=== PATIENT | female | born 1985 | race Caucasian/White ===

== ENCOUNTER 2018-02-10 06:11 | Inpatient (IN) ==
--- NOTE | 2018-02-10 06:36 | OB/GYN History & Physical ---
Date of Encounter: 02/10/18 Time of Encounter: 06:33 Assessment and Plan (1) Vicente breech presentation Current visit: Yes Status: Acute Qualifiers: Qualified Code(s): O32.1XX0 - Maternal care for breech presentation, not applicable or unspecified (2) S/P primary low transverse Current visit: Yes Status: Acute History of Present Illness Chief complaint: breech presentation HPI: Ms. Barnes is a 32 year old female who presents today for a scheduled primary section for vicente breech presentation. Patient has a due date of February 16. She is currently 39 weeks. She is doing well. She is having no complaints of any kind today. An ultrasound was performed today which confirmed vicente breech presentation this morning. Surgery was discussed with patient. She and her wish to proceed. She has no drug allergies. Current medications include omeprazole and vitamins. She has no chronic medical conditions. Surgical history is negative. She has no history of abnormal Pap smears, STDs or pelvic infections. She has no history of abnormal breast findings. Socially she denies tobacco, alcohol, illicit drug use. Family history is significant for hypertension diabetes. Obstetric history significant for one term vaginal delivery uncomplicated. Obstetrical History - Pregnancies : 2 Para: 1 Term: 1 Livin Review of System OB All systems PM: reviewed and no additional remarkable complaints except as stated Exam - Constitutional Constitutional: well developed, well nourished, no acute distress, average body habitus - HEENT HEENT: PERRL - Neck Neck exam: full ROM, normal inspection - Lungs Respiratory exam: CTAB - Cardiovascular Cardiovascular exam: RRR - Abdomen Abdomen: Present: bowel sounds normal, gravid, non tender - Extremities Extremities exam: full ROM, normal capillary refill, normal inspection Deep Tendon Reflex Grade: 0 Absent - Vagina Vagina: Present: normal moisture - Cervix Dilation: 0 Effacement: 0 Station: -3 - Uterus Uterus exam: Present: normal size Results All other labs normal.
[2018-02-10] MEDS ORDERED: Ringers Solution, Lactated 1,000 ML ONE ×2 (06:39→07:28)
[2018-02-10] MEDS ORDERED: Metoclopramide 10 MG/2 ML VIAL IVP ONE (06:42)
[2018-02-10] MEDS ORDERED: CeFAZolin Premix DUPLEX 2,000 MG/50 ML BAG IVPB ONE (06:42)
[2018-02-10] MEDS ORDERED: Famotidine 20 MG/2 ML VIAL IVP ONE (06:42)
[2018-02-10] MEDS ORDERED: Naloxone 0.4 MG/ML INJ IVP PRN (06:42)
[2018-02-10] MEDS ORDERED: Ringers Solution, Lactated 1,000 ML IVC ONE (06:42)
[2018-02-10] MEDS ORDERED: Oxytocin 20 units/ LR 1000 mL 20 UNIT/1,000 ML BAG IVC ONE (06:42)
[2018-02-10] MEDS ORDERED: Oxytocin 20 units/ LR 1000 mL 20 UNIT/1,000 ML BAG IVC SCH ×3 (06:45→19:32)
[2018-02-10] MEDS ORDERED: Ringers Solution, Lactated 1,000 ML IVC SCH (06:45)
[2018-02-10 07:09] LABS: Basophils % 0.3 %; Eosinophils # 0.1 K/mcL (0.0-0.6); Eosinophils % 0.7 %; Hematocrit 36.7 % (35.3-44.9); Hemoglobin 12.4 g/dL (11.5-15.4); Immature Granulocytes % 0.5 % (0-4); Lymphocytes # 2.4 K/mcL (0.6-4.6); Lymphocytes % 26.1 %; Mean Corpuscular HGB Conc 33.8 g/dL (31.6-35.5); Mean Corpuscular Hemoglobin 30.9 pg (28.0-33.3); Mean Corpuscular Volume 91.5 fL (83.0-100.0); Mean Platelet Volume 10.2 fL (9.4-12.4); Monocytes % 11.3 %; Neutrophils # 5.6 K/mcL (1.6-8.9); Platelet Count 233 K/mcL (140-400); Red Blood Count 4.01 M/mcL (3.82-4.97); Red Cell Distribution Width 13.5 % (11.5-14.5); Segmented Neutrophils % 61.1 %
[2018-02-10] MEDS ORDERED: *HR* Morphine Sulfate/PF 10 MG/10 ML AMPUL ONE (07:25)
[2018-02-10] MEDS ORDERED: *HR* FentaNYL (PF) 100 MCG/2 ML VIAL ONE (07:26)
[2018-02-10] MEDS ORDERED: *HR* Oxytocin 10 UNIT/ML VIAL IM ONE (07:27)
[2018-02-10] MEDS ORDERED: EPHEDrine 50 MG/ML VIAL ONE (07:28)
[2018-02-10] MEDS ORDERED: *HR* Phenylephrine 10 MG/ML VIAL ONE (07:30)
[2018-02-10 08:08] LABS: Amphetamine Screen,Urine Negative ng/mL (Cutoff=1000); Barbiturate Screen,Urine Negative ng/mL (Cutoff=200); Benzodiazepines Screen,Urine Negative ng/mL (Cutoff=200); Cannabinoid Screen,Urine Negative ng/mL (Cutoff = 50); Cocaine Screen,Urine Negative ng/mL (Cutoff= 300); Opiate Screen,Urine Negative ng/mL (Cutoff=300); Phencyclidine Screen,Urine Negative ng/mL (Cutoff=25)
--- NOTE | 2018-02-10 08:47 | Anesthesia Evaluation PreOp ---
Date of Encounter: 02/10/18 Time of Encounter: 07:04 - Past History Planned Operation: pcs Cardiac History: Denies any Significant Hx Pulmonary History: Denies Any Significant HX SPEECH LANGUAGE PATHOLOGY ASSISTANT History: Denies Any Significant HX Other Medical History: Denies Any Significant HX Anesthesia History: No Prior Anesthetic Complications : Yes Test: Positive Alcohol Use: none Drug use: none Medications and Allergies Omeprazole [PriLOSEC] 20 mg PO DAILY 02/10/18 [History] Vit Calc,Iron,Folic [ Vitamins] 1 each PO 02/10/18 [History] 3 Allergy/AdvReac Type Severity Reaction Status Date / Time fluconazole [From Diflucan] Allergy Rash Verified 02/10/18 07:17 - Meds/Allergy Pre-op Review Medications Reviewed: Yes Allergies Reviewed: Yes Beta Blockers on Current Med List: No Anesthesia Results - Labs 02/10/18 06:45 Anesthesia Exam 113/82 68 98% 16 Height: 1.6 Weight: 68 NPO (# of Hours): mn - HEENT Pupil (Motor): Pupils equal Mallampati: II Teeth: Normal Oral Opening: Greater than 3 - SPEECH LANGUAGE PATHOLOGY ASSISTANT LOC: Oriented SPEECH LANGUAGE PATHOLOGY ASSISTANT Motor: Normal RUE, Normal LUE, Normal RLE, Normal LLE, Normal Face SPEECH LANGUAGE PATHOLOGY ASSISTANT Sensory: Normal: RUE, LUE, RLE, LLE, Face - Cardiac Rhythm: Regular Murmur: None JVD: No Carotid Bruit: No - Pulmonary Breath Sounds: bilateral Clear Respiratory Effort: Symmetrical Anesthesia Assess/Plan ASA Score: 1 Modified Counselor Scale for Level of Consciousness: Cooperative, oriented, and tranquil Anesthetic Plan: Regional Monitoring Plan: Standard Monitors Recovery Plan: PACU
--- NOTE | 2018-02-10 08:50 | Anesthesia Procedures ---
Date of Encounter: 02/10/18 Time of Encounter: 08:25 Procedures: Anesthesia - Epidural/Spinal Patient ID/Chart reviewed: Yes Patient examined: Yes OB Eval: Gestational age: 39 OB Eval: : 2 OB Eval: Hx Para: 1 OB Eval: Contractions: Non-stressed pattern Consent Obtained: No Site Prep: Aseptic Technique, Sterile prep and drape, Povidone-Iodine 1% Local Anesthetic: Lidocaine 1% Amount of Local Anesthetic used: 3 Interspace Used: L4-L5 Loss of Resistance (JACK): No Blood: No CSF: Yes Paresthesia: No Vitals + FHT's: stable throughout see nursing notes spinal Bupivicaine 0.75% 1.6ml fentanyl 10mcg duramorph 0.3mg
[2018-02-10] MEDS ORDERED: *HR* OxyCODONE/APAP 5/325 TABLET PO PRN ×2 (08:55→09:16)
[2018-02-10] MEDS ORDERED: Ondansetron 4 MG/2 ML VIAL IVP PRN ×2 (08:55→19:32)
[2018-02-10] MEDS ORDERED: Simethicone 80 MG TAB.CHEW PO PRN ×2 (08:55→19:32)
[2018-02-10] MEDS ORDERED: Sennosides 8.6 MG TABLET PO PRN ×2 (08:55→19:32)
[2018-02-10] MEDS ORDERED: Ibuprofen 600 MG TABLET PO PRN (08:55)
[2018-02-10] MEDS ORDERED: Metoclopramide 10 MG/2 ML VIAL IVP PRN ×2 (08:55→19:32)
[2018-02-10] MEDS ORDERED: Ketorolac 30 MG/ML VIAL ONE (08:56)
[2018-02-10] MEDS ORDERED: Dexamethasone 4 MG/ML VIAL ONE (08:56)
[2018-02-10] MEDS ORDERED: Prenatal Vit/FA 1 EACH TABLET PO SCH (09:00)
--- NOTE | 2018-02-10 09:00 | OB/GYN Procedure Note ---
Section - Date of procedure: 02/10/18 Preop diagnosis: breech Post-op diagnosis: same Procedure: primary low transverse Surgeon: Al Spear Quantitated Blood Loss: 200 Was there an grants assistant present: Yes Database Design Analyst: Rufina Russell Anesthesiologist: Vasu Moore Breaker Unit Assembler: Krystle Moore Anesthesia Type: Spinal section complications: none Disposition: PACU Specimens: Placenta - Infant (s) Infant A Infant Delivery Date: 02/10/18 Infant Delivery Time: 08:34 Presentation: vicente breech Position: unknown Route of delivery: breech extraction Gender: Female Viability: Viable Pounds: 6 Ounces: 3 Gram Weight: 2.815 kg at 1 minute: 8 at 5 minutes: 8 Specimens collected: cord blood Placenta: spontaneous - Narrative Narrative: Patient was taken to the operating room with IV in place after informed consent was obtained. She was then given spinal anesthesia. Patient was then prepped and draped in the usual sterile fashion. Once adequate analgesia was achieved a Pfannenstiel incision was made and carried sharply through the subtenons fatty tissue until the fascial layers reached. The fascia was then nicked in the midline and incised bilaterally. It was then dissected vertically for adequate exposure. Rectus abdominis musculature was in the midline, and the peritoneum was entered sharply entered. A bladder blade was placed at the inferior margin of the incision. The bladder flap was then developed. The bladder blade was placed over the bladder flap, and a low transverse incision was then made in the lower uterine segment. Fluid was noted be clear there was not much fluid at all. was found to be in vicente breech presentation. Infant was delivered in the usual fashion without incidence. cried immediately upon delivery. Cord was cut to cut the infant was then passed to nursing in attendance. Cord blood was obtained. Placenta was then delivered via uterine massage. It was delivered in its entirety. Uterine lavage was then performed. The uterus was delivered. The incision was then closed with 0 Vicryl suture running locking fashion. There was excellent hemostasis. The uterus was replaced the pelvic cavity. The pelvic cavity was then rinsed thoroughly with sterile water 2. C no bleeding the procedure was terminated. The fascia was then closed the Vicryl suture in a running nonlocking fashion. Suprafascial region was rinsed thoroughly with sterile water 2 all bleeders cauterized. The skin was closed cristino. Patient tolerated procedure well. Estimated blood loss 200 mL.
[2018-02-10] MEDS ORDERED: Ibuprofen 400 MG TABLET PO PRN (09:16)
[2018-02-10] MEDS ORDERED: *HR* Promethazine 25 MG/ML VIAL IVP PRN (09:16)
[2018-02-10] MEDS ORDERED: *HR* Morphine 2 MG/ML SYRINGE IVP PRN (09:16)
[2018-02-10] MEDS ORDERED: *HR* Meperidine 25 MG/ML SYRINGE IVP PRN (09:16)
[2018-02-10] MEDS ORDERED: Ondansetron 4 MG/2 ML VIAL IVP ONE (09:16)
[2018-02-10] MEDS: ceFAZolin 1,000 MG in Water for inj. (sterile) 20 ML 10 ML IVP SCH (20:15)
[2018-02-10] MEDS: Ibuprofen 600 MG TABLET PO PRN (20:15)
[2018-02-11] MEDS: *HR* OxyCODONE/APAP 5/325 TABLET PO PRN ×4 (00:04→19:48)
[2018-02-11] MEDS: ceFAZolin 1,000 MG in Water for inj. (sterile) 20 ML 10 ML IVP SCH ×2 (05:01→11:44)
[2018-02-11 06:21] LABS: Basophils # 0.1 K/mcL (0.0-0.2); Basophils % 0.4 %; Eosinophils % 0.3 %; Hematocrit 35.8 % (35.3-44.9); Immature Granulocytes % 0.3 % (0-4); Lymphocytes # 2.2 K/mcL (0.6-4.6); Lymphocytes % 17.4 %; Mean Corpuscular HGB Conc 33.5 g/dL (31.6-35.5); Mean Corpuscular Hemoglobin 31.1 pg (28.0-33.3); Mean Corpuscular Volume 92.7 fL (83.0-100.0); Monocytes # 1.3 K/mcL (0.0-1.3); Platelet Count 203 K/mcL (140-400); Red Blood Count 3.86 M/mcL (3.82-4.97); Red Cell Distribution Width 13.5 % (11.5-14.5); Segmented Neutrophils % 71.6 %
[2018-02-11] MEDS: Ibuprofen 600 MG TABLET PO PRN ×3 (07:56→23:53)
[2018-02-11] MEDS: Prenatal Vit/FA 1 EACH TABLET PO SCH (07:56)
[2018-02-11] MEDS: Famotidine 20 MG TABLET PO SCH (13:01)
[2018-02-12] MEDS: *HR* OxyCODONE/APAP 5/325 TABLET PO PRN ×2 (02:02→08:15)
[2018-02-12] MEDS: Ibuprofen 600 MG TABLET PO PRN (06:46)
[2018-02-12 07:46] VITALS: BP 108/70
[2018-02-12] MEDS: Famotidine 20 MG TABLET PO SCH (08:15)
[2018-02-12] MEDS: Prenatal Vit/FA 1 EACH TABLET PO SCH (08:15)
--- NOTE | 2018-02-12 09:15 | Discharge Summary ---
Date of Encounter: 02/12/18 Time of Encounter: 09:14 - Discharge Diagnosis (1) S/P primary low transverse Priority: Primary Status: Acute Comments: Stable in PP. Pain well managed on po pain medication, tolerates regular diet, passing flatus, no BM. Bottle feeding, desires discharge. - Discharge Medications Prescriptions: OxyCODONE/APAP 5/325 [Percocet 5/325 MG] 1 each PO Q4HR PRN 5 Days #20 tablet PRN Reason: Moderate pain 4-6 Ibuprofen [Motrin] 600 mg PO Q6HR PRN #60 tablet PRN Reason: Cramping Docusate [Colace] 100 mg PO BID #30 capsule Home Medications: Vit Calc,Iron,Folic [ Vitamins] 1 each PO 02/10/18 [History] Docusate [Colace] 100 mg PO BID #30 capsule 02/12/18 [Rx] Famotidine [Pepcid] 20 mg PO BIDAC tablet 02/12/18 [Rx] Ibuprofen [Motrin] 600 mg PO Q6HR PRN #60 tablet 02/12/18 [Rx] OxyCODONE/APAP 5/325 [Percocet 5/325 MG] 1 each PO Q4HR PRN 5 Days #20 tablet [Rx] Vit/FA 1 each PO DAILY tablet 02/12/18 [Rx] Simethicone [Gas-X] 80 mg PO TID PRN tab.chew 02/12/18 [Rx] Allergies/Adverse Reactions: 3 Allergy/AdvReac Type Severity Reaction Status Date / Time fluconazole [From Diflucan] Allergy Rash Verified 02/10/18 07:17 Data Procedures and tests throughout hospitalization: Laboratory Tests 02/10/18 02/10/18 02/11/18 06:45 06:45 06:11 WBC 9.2 12.5 H RBC 4.01 3.86 Hgb 12.4 12.0 Hct 36.7 35.8 MCV 91.5 92.7 MCH 30.9 31.1 MCHC 33.8 33.5 RDW 13.5 13.5 Plt Count 233 203 MPV 10.2 10.0 Immature Gran % 0.5 0.3 Seg Neutrophils % 61.1 71.6 Lymphocytes % 26.1 17.4 Monocytes % 11.3 10.0 Eosinophils % 0.7 0.3 Basophils % 0.3 0.4 Neutrophils # 5.6 9.0 H Lymphocytes # 2.4 2.2 Monocytes # 1.0 1.3 Eosinophils # 0.1 0.0 Basophils # 0.0 0.1 Immature Plt Fraction 5.0 Urine Opiates Screen Negative Ur Barbiturates Screen Negative Ur Phencyclidine Scrn Negative Ur Amphetamines Screen Negative U Benzodiazepines Scrn Negative Urine Cocaine Screen Negative U Marijuana (THC) Screen Negative Ur Drug Screen Interp See Below Date of admission: 02/10/18 06:11 Primary care physician: Vasu Peck DO Discharging clinician: Deborah Barreto Anticipated date of discharge: 02/12/18 - Patient Status Disposition: Home, Self-Care Condition: Good Functional capacity at discharge: independent ambulation Overall status at discharge: patient is progressing back to baseline - Discharge Instructions Follow Up With: Vasu Peck DO [Primary Care Provider] - Al Spear MD [Partnered Physician] - - Diet and Activity Activity: resume usual activities as tolerated Diet: regular diet Hospital Course Reason for admission: section Delivery: section Episiotomy: none Laceration: none Other procedures: none complications: none Discharge diagnosis: IUP at term delivered [place] baby: female Hospital course: Section - Date of procedure: 02/10/18 Preop diagnosis: breech Post-op diagnosis: same Procedure: primary low transverse Surgeon: Al Spear Quantitated Blood Loss: 200 Was there an trade sales assistant present: Yes Finish Patcher: Rufina Russell Anesthesiologist: Vasu Moore Wood Strip Block Floor Installer: Krystle Moore Anesthesia Type: Spinal section complications: none Disposition: PACU Specimens: Placenta - Infant (s) Infant A Delivery Date: 02/10/18 Infant Delivery Time: 08:34 Presentation: vicente breech Position: unknown Route of delivery: breech extraction Gender: Female Viability: Viable Pounds: 6 Ounces: 3 Gram Weight: 2.815 kg at 1 minute: 8 at 5 minutes: 8 Specimens collected: cord blood Placenta: spontaneous Stable in PP and appropriate for discharge, OARRS reviewed. Time Attestation: Total time spent providing and/or coordinating discharge services: Time Spent: Less than 30 minutes - VTE Reasons for not Prescribing Prophylaxis: Treatment not Indicated - Low risk for VTE Documentation of Mechanical Device: Intermittent pneumatic compression device Exam - Constitutional Vitals: Temp Pulse Resp BP Pulse Ox 97.9 F 78 16 108/70 97 02/12/18 07:46 02/12/18 07:46 02/12/18 07:46 02/12/18 07:46 02/11/18 20:15 General appearance IM: A&O X 3 - Respiratory Respiratory exam: Present: CTAB - Cardiovascular Cardiovascular exam IM: Present: RRR - GI/Abdominal GI/Abdominal exam IM: soft Incision: normal, intact (cristino) - Uterine Tone: Firm Uterus Position: 1 Finger Below Umbilicus - Extremities Exam Extremities exam IM: Present: normal capillary refill, normal inspection - Neurological Exam Neurological exam: normal gait, oriented X3 - Psychiatric Additional comments: reports good mood
== END 2018-02-12 10:25 | disposition home or self-care (01) | DRG 788 ==
LOC: 1NENULAB 06:11 → 1NENUOBS 11:36
PROVIDERS: ADMIT Obstetrics & Gynecology; ATTEND Obstetrics & Gynecology